=== PATIENT | male | born 1945 ===

== ENCOUNTER 2020-02-21 06:17 | Day surgery (SDC) | payer MEDICARE ==
[~2020-02-21] VITALS: Wt 114.3 kg
[~2020-02-21 06:17] MED LIST: HYDACE5 PO; RXCLIN PO; VARE1 PO
[2020-02-21] MEDS ORDERED: ATOR80 (07:16)
[2020-02-21] MEDS ORDERED: IBUP800 (07:17)
[2020-02-21] MEDS ORDERED: GLUCHON (07:17)
[2020-02-21] MEDS ORDERED: ASPIR 8181 M1 (07:17)
[2020-02-21] MEDS ORDERED: VITAMIN B125000 MC1 (07:18)
--- NOTE | 2020-02-21 07:37 | NUR ---
02/21/20 0737 Cari Overton S CONTACTS BILAT TAKEN OUT & PLACED IN A STERILE CUP WITH NACL. DENTURES UPPER & LOWER TAKEN OUT. ALL PLACED IN PT.'S LOCKER. PT. ALSO WITH HIS OWN CANE, STICKERED & TAKEN TO SD.
== END 2020-02-21 09:45 | disposition home or self-care (01) ==
LOC: ORSCSDS 06:17
PROVIDERS: Orthopaedic Surgery
PROC: 0QSH04Z Reposition Left Tibia with Internal Fixation Device, Open Approach (ICD-10-PCS; principal; 2020-02-21 07:30)
PROC: 0QSK04Z Reposition Left Fibula with Internal Fixation Device, Open Approach (ICD-10-PCS; principal; 2020-02-21 07:30)
DX: S82.402A Unspecified fracture of shaft of left fibula, initial encounter for closed fracture (principal); S93.432A Sprain of tibiofibular ligament of left ankle, initial encounter; I25.10 Atherosclerotic heart disease of native coronary artery without angina pectoris; Z87.891 Personal history of nicotine dependence; Z79.899 Other long term (current) drug therapy; Z79.82 Long term (current) use of aspirin; E66.9 Obesity, unspecified; Z68.32 Body mass index [BMI] 32.0-32.9, adult
CPT/HCPCS: A9270; C1776; J0171; J0690; J1100; J1885; J2250; J2405; J2704; J3010; J7120

== ENCOUNTER → 2020-07-04 | Outpatient (CLI) | payer MEDICARE ==
[~2020-07-04] MED LIST changes: +ASPIR 8181 M1; +ATOR80; +GLUCHON; +IBUP800; +VITAMIN B125000 MC1
== END | disposition home or self-care (01) ==
LOC: LAB SHORT 14:20 → LAB 14:20
DX: L72.0 Epidermal cyst (principal)
CPT/HCPCS: 88304